=== PATIENT | male | born 2000 | race Caucasian/White ===

== ENCOUNTER 2021-07-23 06:20 | Emergency (ER) | payer OTHER | END 2021-07-23 09:14 | disposition home or self-care (01) | LOC: FER 06:20 | DX: J45.909 Unspecified asthma, uncomplicated (principal); F17.290 Nicotine dependence, other tobacco product, uncomplicated; Z88.1 Allergy status to other antibiotic agents; Z20.822 Contact with and (suspected) exposure to COVID-19 | CPT/HCPCS: 99283; U0002 ==